=== PATIENT | male | born 1995 | race Caucasian/White ===

== ENCOUNTER 2020-03-24 11:58 | Emergency (ER) | payer OTHER ==
[~2020-03-24] VITALS: Ht 190.5 cm; Wt 160.0 kg
--- NOTE | 2020-03-24 12:18 | NUR ---
DIANAFermin UGALDE FROM [facility] WITH CHIEF C/O HYPOTENSION, TACHYCARDIA AND ABD PAIN. PER EMS PATIENT'S BP YESTERDAY WAS 95/67 AND HR OF 106 PATIENT WAS GIVEN 2 LITERS OF LR. TODAY PATIENT UNABLE TO EAT, C/O ABD PAIN, BP EN ROUTE 110/80, PATIENT GIVEN 4 MG PO ZOFRAN EN ROUTE. PATIENT'S MEDICATIONS HELD THIS MORNING PER EMS. PER PATIENT HE HAS BEEN EXPERIENCING ABD PAIN X3 DAYS, WITH N/V/D. PATIENT DENIES FEVER. PATIENT REPORTS BEING UNABLE TO KEEP ANYTHING DOWN. PATIENT ACCOMPANIED BY 2 GUARDS, CONNECTED TO RN CARDIAC CATH, NADN.
[2020-03-24] MEDS ORDERED: SODIUM CHLORIDE 0.9% 1,000ML IVBOLUS ONE (12:30)
[2020-03-24] MEDS ORDERED: SODIUM CHLORIDE FLUSH 10ML SYR IVF ONE (12:30)
[2020-03-24] MEDS ORDERED: ONDANSETRON 2MG/ML, 2ML IVPush ONE (12:30)
[2020-03-24] MEDS ORDERED: ONDANSETRON 2MG/ML, 2ML ONE (12:33)
[2020-03-24 13:06] LABS: BASOPHILS % (AUTO) 0 % (0-1); EOSINOPHILS % (AUTO) 2 % (1-7); LYMPHOCYTES % (AUTO) 20 % (22-44); MEAN CORPUSCULAR HEMOGLOBIN 28.5 pg (27.5-34.5); MEAN CORPUSCULAR HGB CONC 34.5 g/dL (33.2-36.2); MEAN PLATELET VOLUME 9.4 fL (7.4-10.4); MONOCYTES % (AUTO) 8 % (2-9); NEUTROPHILS % (AUTO) 70 % (42-75); PLATELET COUNT 219 x10^3/uL (130-400); RED BLOOD COUNT 5.62 x10^6/uL (4.38-5.82); RED CELL DISTRIBUTION WIDTH 14.1 % (9.4-14.8)
[2020-03-24 13:09] LABS: MD NO
--- NOTE | 2020-03-24 13:12 | NUR ---
URINAL PROVIDED TO PATIENT FOR URINE SAMPLE, PATIENT STATES HE IS UNABLE TO GO AT THIS TIME.
[2020-03-24 13:19] LABS: CALCIUM 9.1 mg/dL (8.5-10.1); CHLORIDE 101 mmol/L (98-107)
[2020-03-24 13:25] LABS: ALANINE AMINOTRANSFERASE 98 U/L (12-78); ALBUMIN 3.7 g/dL (3.4-5.0); ALKALINE PHOSPHATASE 58 U/L (45-117); ANION GAP 10 mmol/L (5-15); BILIRUBIN,TOTAL 0.9 mg/dL (0.2-1.0); CREATININE 1.57 mg/dL (0.7-1.3); TOTAL PROTEIN 7.8 g/dL (6.4-8.2)
--- NOTE | 2020-03-24 13:44 | NUR ---
URINE SAMPLE COLLECTED AND SENT TO LAB. PATIENT RESTING IN RERIE, WATCHING TV, NADN, VSS, 2 GUARDS AT BEDSIDE.
[2020-03-24 13:55] LABS: MICROSCOPIC AUTO
--- NOTE | 2020-03-24 14:35 | NUR ---
PATIENT TO CT SCAN.
[2020-03-24] MEDS ORDERED: OMNIPAQUE 350 MG/ML, 150 ML BOTTLE ONE (14:48)
--- NOTE | 2020-03-24 14:58 | NUR ---
PATIENT BACK FROM CT, RESTING IN GURNEY WATCHING TV, NADN, CONNECTED TO CARDAIC MONITOR, SLIGHTLY TACHYCARDIC AT 104, OTHER VITALS WNL. 2 GUARDS AT BEDSIDE, WAITING FOR CT RESULTS.
--- NOTE | 2020-03-24 15:39 | NUR ---
ERMD AT BEDSIDE TO DISCUSS POC.
--- NOTE | 2020-03-24 15:51 | NUR ---
PATIENT PROVIDED WATER AND CRACKERS FOR PO CHALLENGE.
[2020-03-24 16:15] VITALS: BP 108/60
--- NOTE | 2020-03-24 16:28 | NUR ---
Patient given discharge instructions and prescriptions and they have confirmed that they understand the instructions. Patient stable and ambulatory with steady gait from ED in custody with 2 guards at side to be transferred back to long-term.
== END 2020-03-24 16:29 | disposition home or self-care (01) ==
LOC: ED 12:56
DX: R11.2 Nausea with vomiting, unspecified (principal); R19.7 Diarrhea, unspecified; R10.9 Unspecified abdominal pain; R00.0 Tachycardia, unspecified; I10 Essential (primary) hypertension; E11.9 Type 2 diabetes mellitus without complications; Z88.0 Allergy status to penicillin; Z88.8 Allergy status to other drugs, medicaments and biological substances
CPT/HCPCS: 36415; 74177; 80053; 81001; 83690; 85025; 93005; 96361; 96374; 99285; J2405; J7030; Q9967